=== PATIENT | female | born 1995 | race Caucasian/White ===

== ENCOUNTER → 2018-12-28 | Outpatient (CLI) | payer OTHER ==
--- NOTE | 2018-12-28 17:05 | REP ---
ULTRASOUND RIGHT BREAST: Real-time sonographic evaluation of the right breast was performed in the region of a palpable abnormality right breast between 3 and 5 o'clock. No cystic or solid nodule is seen in this region. IMPRESSION: ACR 2 benign ultrasound right breast in the region of 4 o'clock. No cystic or solid nodule. A negative ultrasound should not deter biopsy if there is a clinically suspicious palpable mass present. Electronically Signed by Panfilo Montana MD 12/29/2018 12:37 P
== END ==
LOC: M RAD 13:37
PROVIDERS: ATTEND Physician Assistant
DX: N63.13 Unspecified lump in the right breast, lower outer quadrant (principal)

== ENCOUNTER 2019-11-10 19:54 | Outpatient (CLI) | payer OTHER ==
[~2019-11-10] VITALS: Ht 160 cm; Wt 83.7 kg
[2019-11-10 20:07] VITALS: BP 129/64
[2019-11-10] MEDS ORDERED: IRON27TA2 PO (20:15)
[2019-11-10] MEDS ORDERED: MULTTAB20 PO (20:15)
[2019-11-10] MEDS ORDERED: VITA250T4 PO (20:15)
--- NOTE | 2019-11-11 10:51 | HPE ---
DATE OF ADMISSION: 11/10/2019 This girl is a 24-year-old 1, para 0, last menstrual period (LMP) 04/11/2019, estimated date of confinement (EDC) 01/16/2020 at 30 and 3 weeks of gestation, came in with a 40-minute episode of right upper quadrant spastic pain. Denies when takes a deep breath that it is an issue. Denies any fatty food intake today. The patient did not bring her passport; we were unable to locate her chart and she did not call prior to coming. Her lab values show that she is O negative, HIV negative, hepatitis negative, RPR negative, rubella immune, varicella immune. Gonorrhea was negative. Urine was negative. 1-hour glucose at 28 weeks was 115. On examination presently, she does not appear in any acute distress. Percussion of the back does not reproduce the pain. Deep palpation in the right upper quadrant did not reproduce the pain. The liver edges and the appropriate area of gallbladder is non-sensitive . Percussion is negative. No increased heat in the gallbladder area. On deep inspiration, no evidence of right upper quadrant pain. Her blood pressure is 129/64, respirations are regular at16, pulse oximetry on room air 100%, pulses 88 and temperature is 98.5. Symphysis fundus height is appropriate. Four quadrant bowel sounds are noted. Uterus is nontender. Category one strip with acceleration, no contraction, no decelerations, moderate variability, baseline was normal. Urine is 1.020, pH is 5, trace protein, negative for ketones and glucose. We assumed that this is positional pain related to the baby or musculoskeletal. It does not reproduce on any physical examination or deep palpation or percussion. Other than that, it may be related to just gas or biliary tenderness, although the patient has never had acute gallbladder attack and denies any fatty foods. The patient has an appointment on Tuesday11/12/2019 at her centering appointment. If conditions are worse, the patient was told to return, otherwise precautions, increase fluids. The patient was discharged undelivered with conservative management directions.
== END 2019-11-10 21:30 | disposition home or self-care (01) ==
LOC: M LDO 19:54
PROVIDERS: ATTEND Obstetrics & Gynecology
DX: O26.893 Other specified pregnancy related conditions, third trimester (principal); Z3A.30 30 weeks gestation of pregnancy
CPT/HCPCS: 59025; G0378; G0463